=== PATIENT | male | born 1955 | race Caucasian/White ===

== ENCOUNTER 2018-10-09 19:48 | Emergency (ER) | payer OTHER | END 2018-10-09 22:51 | disposition home or self-care (01) | LOC: ER 19:48 | DX: S50.312A Abrasion of left elbow, initial encounter (principal); S20.312A Abrasion of left front wall of thorax, initial encounter; M25.552 Pain in left hip; M25.512 Pain in left shoulder; V19.00XA Pedal cycle driver injured in collision with unspecified motor vehicles in nontraffic accident, initial encounter; Y92.410 Unspecified street and highway as the place of occurrence of the external cause; Y93.89 Activity, other specified; Y99.8 Other external cause status ==